=== PATIENT | female | born 1935 | race Two or more races ===

== ENCOUNTER → 2017-12-17 | Outpatient (CLI) | payer OTHER | END | disposition home or self-care (01) | LOC: RAD 501 15:06 | DX: M25.562 Pain in left knee (principal); M25.551 Pain in right hip; M25.552 Pain in left hip; M25.521 Pain in right elbow ==

== ENCOUNTER 2022-04-01 08:37 | Outpatient (CLI) | payer OTHER | END 2022-04-01 08:39 | disposition home or self-care (01) | LOC: SONOGRAMA 08:37 | PROVIDERS: ATTEND Pathology Anatomic Pathology | DX: D34 Benign neoplasm of thyroid gland (principal); E04.9 Nontoxic goiter, unspecified; E04.8 Other specified nontoxic goiter ==